=== PATIENT | female | born 1965 | race Caucasian/White ===

== ENCOUNTER 2017-01-17 10:30 | Emergency (ER) | payer SELFPAY ==
[2017-01-17] MEDS ORDERED: KETOROLAC TROMETHAMINE 60 MG/2 ML SDV IM ONE (10:44)
--- NOTE | 2017-01-17 10:50 | ER Document Report ---
ED Medical Screen (RME) - General Chief Complaint: Cough Stated Complaint: RIB PAIN Time Seen by Provider: 01/17/17 10:43 Mode of Arrival: Ambulatory Information source: Patient TRAVEL OUTSIDE OF THE [place] IN LAST 30 DAYS: No - HPI Patient complains to provider of: coughing up blood Onset: This morning - pt. has a h/o COPD who ocntinues to smoke -- she had an a eppisode of hemoptysis earlier this am and is having pain in R side of rib cage when she ocughs. - Related Data Allergies/Adverse Reactions: No Known Allergies Allergy (Verified 01/17/17 10:34) Past Medical History - Past Medical History Cardiac Medical History: Reports: Hx Pulmonary Embolism Pulmonary Medical History: Reports: Hx COPD Renal/ Medical History: Denies: Hx Peritoneal Dialysis Past Surgical History: Reports: Hx Cholecystectomy, Hx Oral Surgery - facial reconstruction Physical Exam - Vital signs Vitals: Temp Pulse Resp BP Pulse Ox 97.8 F 97 20 140/70 H 95 01/17/17 10:34 01/17/17 10:34 01/17/17 10:34 01/17/17 10:34 01/17/17 10:34 Course - Vital Signs Vital signs: Temp Pulse Resp BP Pulse Ox 97.8 F 97 20 140/70 H 95 01/17/17 10:34 01/17/17 10:34 01/17/17 10:34 01/17/17 10:34 01/17/17 10:34
[2017-01-17 11:20] LABS: ABSOLUTE BASOPHILS # (AUTO) 0.1 10^3/uL (0.0-0.2); ABSOLUTE EOSINOPHILS # (AUTO) 0.2 10^3/uL (0.0-0.6); ABSOLUTE LYMPHOCYTES (AUTO) 2.9 10^3/uL (0.5-4.7); ABSOLUTE MONOCYTES (AUTO) 0.6 10^3/uL (0.1-1.4); ABSOLUTE NEUT (AUTO) 3.2 10^3/uL (1.7-8.2); BASOPHILS % (AUTO) 0.7 % (0-2); EOSINOPHILS % (AUTO) 3.2 % (0-6); HEMATOCRIT 46.4 % (36.0-47.0); HEMOGLOBIN 16.3 g/dL (12.0-15.5); HGB HCT DIFFERENCE 2.5; LYMPHOCYTES % (AUTO) 41.9 % (13-45); MEAN CORPUSCULAR HEMOGLOBIN 34.1 pg (27.0-33.4); MEAN CORPUSCULAR HGB CONC 35.3 g/dL (32.0-36.0); MEAN CORPUSCULAR VOLUME 97 fl (80-97); MONOCYTES % (AUTO) 7.9 % (3-13); RED CELL DISTRIBUTION WIDTH 13.2 % (11.5-14.0); SEGMENTED NEUTROPHILS % (AUTO) 46.3 % (42-78)
--- NOTE | 2017-01-17 11:25 | RADIOLOGY REPORT (SQ) ---
EXAM DESCRIPTION: CHEST PA/LAT COMPLETED DATE/TIME: 01/17/2017 11:11 am REASON FOR STUDY: hemoptysis COMPARISON: 01/09/2016 EXAM PARAMETERS: NUMBER OF VIEWS: two views TECHNIQUE: Digital Frontal and Lateral radiographic views of the chest acquired. RADIATION DOSE: NA LIMITATIONS: none FINDINGS: LUNGS AND PLEURA: No opacities, masses or pneumothorax. No pleural effusion. MEDIASTINUM AND HILAR STRUCTURES: No masses or contour abnormalities. HEART AND VASCULAR STRUCTURES: Heart normal size. No evidence for failure. BONES: No acute findings. HARDWARE: None in the chest. OTHER: No other significant finding. IMPRESSION: NO SIGNIFICANT RADIOGRAPHIC FINDING IN THE CHEST. TECHNICAL DOCUMENTATION: JOB ID: [id number] [employer]- All Rights Reserved
[2017-01-17 11:40] LABS: ALANINE AMINOTRANSFERASE 33 U/L (9-52); ALKALINE PHOSPHATASE 92 U/L (38-126); ANION GAP 13 (5-19); ASPARTATE AMINO TRANSFERASE 22 U/L (14-36); BILIRUBIN,DIRECT 0.4 mg/dL (0.0-0.4); BILIRUBIN,TOTAL 0.4 mg/dL (0.2-1.3); BLOOD UREA NITROGEN 8 mg/dL (7-20); CALCIUM 9.4 mg/dL (8.4-10.2); CARBON DIOXIDE 23 mmol/L (22-30); CHLORIDE 108 mmol/L (98-107); CREATININE RESULT 0.81 mg/dL (0.52-1.25); GLUCOSE 123 mg/dL (75-110); POTASSIUM 3.8 mmol/L (3.6-5.0); SODIUM 144.3 mmol/L (137-145); TOTAL PROTEIN 7.2 g/dL (6.3-8.2)
--- NOTE | 2017-01-17 13:01 | EKG REPORT ---
SEVERITY:- ABNORMAL ECG - SINUS RHYTHM NONSPECIFIC T ABNORMALITIES, ANTERIOR LEADS : Confirmed by: Florentin Thornton MD 17-Jan-2017 13:00:26
[2017-01-17] MEDS ORDERED: NORMAL SALINE 1000 ML 1,000 ML IV ONE (13:28)
--- NOTE | 2017-01-17 13:49 | RADIOLOGY REPORT (SQ) ---
EXAM DESCRIPTION: CTA CHEST COMPLETED DATE/TIME: 01/17/2017 1:30 pm REASON FOR STUDY: right cp sob hemoptysis COMPARISON: None. TECHNIQUE: CT scan of the chest performed using helical scanning technique with dynamic intravenous contrast injection. Images reviewed with lung, soft tissue and bone windows. Reconstructed coronal and sagittal MPR images reviewed. Additional 3 dimensional post-processing performed to develop Maximal Intensity Projection images (WA P). All images stored on PACS. All CT scanners at this facility use dose modulation, iterative reconstruction, and/or weight based d osing when appropriate to reduce radiation dose to as low as reasonably achievable (ALARA). [facility]: Dose Right [facility]: CareDose [facility]: Dose Right [facility]: Teradose 4D [facility]: [employer] CONTRAST TYPE AND DOSE: contrast/concentration: Isovue 370.00 mg/ml; Total Contrast Delivered: 82.0 ml; Total Saline Delivered: 90.0 ml Contrast bolus optimized for the pulmonary arteries. Not diagnostic for the aorta. RENAL FUNCTION: Creatinine 0.8 BUN 8 RADIATION DOSE: Up-to-date CT equipment and radiation dose reduction techniques were employed. CTDIv ol: 16.5 - 31.2 mGy. DLP: 1116 mGy-cm. . LIMITATIONS: None. FINDINGS: LUNGS AND PLEURA: There is a 5 mm subpleural nodule in the left lower lobe on image 67 ser ies 4. No infiltrate or effusion. AORTA AND GREAT VESSELS: No aneurysm. Contrast bolus not optimized for the aorta. HEART: No pericardial effusion. No significant coronary artery calcifications. PULMONARY ARTERIES: No emboli visualized in the main pulmonary arteries or the segmental branches. HILAR AND MEDIASTINAL STRUCTURES: No identified masses or abnormal nodes. HARDWARE: None in the chest. UPPER ABDOMEN: No significant findings. Limited exam. THYROID AND OTHER SOFT TISSUES: No masses. No adenopathy. BONES: No acute or significant finding. 3D MIPS: Confirm above findings. OTHER: No other significant finding. IMPRESSION: 1. There is no evidence of pulmonary embolus. 2. There is a nonspecific 5 mm subpleural nodule on the left. COMMENT: [facility] CRITERIA FOR FOLLOW-UP OF PULMONARY NODULES Incidentally detected new nodules in persons 35 or older. HIGH RISK: History of smoking or other known risk factors. <6mm single solid nodule: LOW RISK: no routine followup. HIGH RISK: optional CT 12 mo. Quality ID # [id number]: Final reports with documentation of one or more dose reduction techniques (e.g., Au tomated exposure control, adjustment of the mA and/or kV according to patient size, use of iterative reconstruction technique) TECHNICAL DOCUMENTATION: JOB ID: [id number] [employer]- All Rights Reserved
[2017-01-17] MEDS ORDERED: AZITHROMYCIN 250 MG TABLET PO ONE (14:28)
[2017-01-17] MEDS ORDERED: ALBUTEROL SULFATE HFA (90 MCG/PUFF) 8 GM MDI (1 MDI/ER DISP) IH ONE (14:31)
--- NOTE | 2017-01-17 14:31 | ER Document Report ---
ED General - General Chief Complaint: Cough Stated Complaint: RIB PAIN Time Seen by Provider: 01/17/17 10:43 Mode of Arrival: Ambulatory TRAVEL OUTSIDE OF THE [place] 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 Patient states history of PE in the past. States pain ongoing for the last 3 days denies any trauma patient states smokes. Denies any fevers chills nausea vomiting. Patient resting comfortably upon my evaluation. No relief with pain medications. - Related Data Allergies/Adverse Reactions: No Known Allergies Allergy (Verified 01/17/17 10:34) Past Medical History - General Information source: Patient - Social History Smoking Status: Current Every Day Smoker Chew tobacco use (# tins/day): No Frequency of alcohol use: None Drug Abuse: None Family History: Reviewed & Not Pertinent Patient has suicidal ideation: No Patient has homicidal ideation: No - Past Medical History Cardiac Medical History: Reports: Hx Pulmonary Embolism Pulmonary Medical History: Reports: Hx COPD, Hx Pneumonia Renal/ Medical History: Denies: Hx Peritoneal Dialysis Past Surgical History: Reports: Hx Cholecystectomy, Hx Oral Surgery - facial reconstruction Review of Systems - Review of Systems Constitutional: No symptoms reported EENT: No symptoms reported Cardiovascular: Chest pain - Right rib pain Respiratory: No symptoms reported Gastrointestinal: No symptoms reported Genitourinary: No symptoms reported Female Genitourinary: No symptoms reported Musculoskeletal: No symptoms reported Skin: No symptoms reported Hematologic/Lymphatic: No symptoms reported Neurological/Psychological: No symptoms reported -: Yes All other systems reviewed and negative Physical Exam - Vital signs Vitals: Temp Pulse Resp BP Pulse Ox 97.8 F 97 20 140/70 H 95 01/17/17 10:34 01/17/17 10:34 01/17/17 10:34 01/17/17 10:34 01/17/17 10:34 Interpretation: Normal - General General appearance: Appears well, Alert - HEENT Head: Normocephalic, Atraumatic Eyes: Normal Pupils: PERRL - Respiratory Respiratory status: No respiratory distress Chest status: Tender - Tenderness to palpation of the right ribs Breath sounds: Normal Chest palpation: Normal - Cardiovascular Rhythm: Regular Heart sounds: Normal auscultation Murmur: No - Abdominal Inspection: Normal Distension: No distension Bowel sounds: Normal Tenderness: Nontender Organomegaly: No organomegaly - Back Back: Normal, Nontender - Extremities General upper extremity: Normal inspection, Nontender, Normal color, Normal ROM , Normal temperature General lower extremity: Normal inspection, Nontender, Normal color, Normal ROM , Normal temperature, Normal weight bearing. No: Martha's sign - Neurological Neuro grossly intact: Yes Cognition: Normal Orientation: AAOx4 [place] Coma Scale Eye Opening: Spontaneous [place] Coma Scale Verbal: Oriented Jo Coma Scale Motor: Obeys Commands Jo Coma Scale Total: 15 Speech: Normal Motor strength normal: LUE, RUE, LLE, RLE Sensory: Normal - Psychological Associated symptoms: Normal affect, Normal mood - Skin Skin Temperature: Warm Skin Moisture: Dry Skin Color: Normal Course - Re-evaluation Re-evalutation: 01/17/17 15:07 CTA is negative that shows single pulmonary nodule patient was encouraged follow -up information was given to her social work job titles to aid in follow-up for the patient. Unclear etiology of hemoptysis possibly underlying bronchitis concerning still for malignancy. Bronchitis atypical infection with Zithromax and bronchodilators. Otherwise laboratories not show any signs of critical pathology. Patient was highly encouraged to stop smoking and follow-up - Vital Signs Vital signs: Temp Pulse Resp BP Pulse Ox 97.8 F 97 20 140/70 H 95 01/17/17 10:34 01/17/17 10:34 01/17/17 10:34 01/17/17 10:34 01/17/17 10:34 - Laboratory Result Diagrams: 01/17/17 11:03 01/17/17 11:03 Laboratory results interpreted by me: 01/17/17 01/17/17 11:03 11:03 Hgb 16.3 H MCH 34.1 H Chloride 108 H Glucose 123 H Discharge - Discharge Clinical Impression: Bronchitis with hemoptysis Condition: Good Instructions: Bronchitis ([facility]), Hemoptysis ([facility]) Additional Instructions: At this time your CAT scan does not show any signs of significant infection or a blood clot. There is a 5 mm nodule seen left upper chest that will need to be followed by primary care in approximately 3 months. Please make sure we have good contact information for you as that our social work job titles will attempt to set up this follow-up appointment. I am concerned that you are coughing up blood. He may have underlying bronchitis that would not show up on the CT scan or a chest x-ray. We will treat this with a medication to open up her lungs to help out with shortness of breath also antibiotic called azithromycin. Please use the inhaler that we gave you here in ER 2 puffs every 4 hours. Return to ER symptoms worsen. Please stop smoking. Prescriptions: Azithromycin 250 mg PO DAILY #4 tablet Forms: Smoking Cessation Education, Return to Work
[2017-01-17 15:32] VITALS: BP 145/81
== END 2017-01-17 15:32 | disposition home or self-care (01) ==
LOC: ER 10:30
DX: J40 Bronchitis, not specified as acute or chronic (principal); R04.2 Hemoptysis; R07.81 Pleurodynia; F17.200 Nicotine dependence, unspecified, uncomplicated; J44.9 Chronic obstructive pulmonary disease, unspecified; Z86.711 Personal history of pulmonary embolism; Z90.49 Acquired absence of other specified parts of digestive tract
CPT/HCPCS: 93005; 99284; 96372; 96360; 85025; 36415; 80053; 71020; 71275; 93010; J1885; J7030; J3490

== ENCOUNTER 2017-05-12 12:35 | Emergency (ER) | payer SELFPAY ==
--- NOTE | 2017-05-12 14:13 | ER Document Report ---
ED Medical Screen (RME) - General Chief Complaint: Chest Pain Stated Complaint: PAIN IN BACK/ DIFFICULTY BREATHING Time Seen by Provider: 05/12/17 14:11 Notes: pt has cough/cp/back pain for several weeks TRAVEL OUTSIDE OF THE [place] IN LAST 30 DAYS: No - Related Data Allergies/Adverse Reactions: acetaminophen [From Vicodin] Adverse Reaction (Verified 05/12/17 14:02) hydrocodone [From Vicodin] Adverse Reaction (Verified 05/12/17 14:02) Past Medical History - Social History Chew tobacco use (# tins/day): No Frequency of alcohol use: None Drug Abuse: None - Past Medical History Cardiac Medical History: Reports: Hx Pulmonary Embolism Pulmonary Medical History: Reports: Hx COPD, Hx Pneumonia Renal/ Medical History: Denies: Hx Peritoneal Dialysis Past Surgical History: Reports: Hx Cholecystectomy, Hx Oral Surgery - facial reconstruction Physical Exam - Vital signs Vitals: Temp Pulse Resp BP Pulse Ox 98.1 F 115 H 18 126/71 H 93 05/12/17 12:53 05/12/17 12:53 05/12/17 12:53 05/12/17 12:53 05/12/17 12:53 Course - Vital Signs Vital signs: Temp Pulse Resp BP Pulse Ox 98.1 F 115 H 18 126/71 H 93 05/12/17 12:53 05/12/17 12:53 05/12/17 12:53 05/12/17 12:53 05/12/17 12:53
--- NOTE | 2017-05-12 14:37 | RADIOLOGY REPORT (SQ) ---
EXAM DESCRIPTION: CHEST PA/LAT COMPLETED DATE/TIME: 05/12/2017 2:30 pm REASON FOR STUDY: cough/sob COMPARISON: 01/17/2017. EXAM PARAMETERS: NUMBER OF VIEWS: two views TECHNIQUE: Digital Frontal and Lateral radiographic views of the chest acquired. RADIATION DOSE: NA LIMITATIONS: none FINDINGS: LUNGS AND PLEURA: No opacities, masses or pneumothorax. No pleural effusion. MEDIASTINUM AND HILAR STRUCTURES: No masses or contour abnormalities. HEART AND VASCULAR STRUCTURES: Heart normal size. No evidence for failure. BONES: No acute findings. HARDWARE: None in the chest. OTHER: No other significant finding. IMPRESSION: NO SIGNIFICANT RADIOGRAPHIC FINDING IN THE CHEST. TECHNICAL DOCUMENTATION: JOB ID: [id number] [employer]- All Rights Reserved Reading location - IP/workstation name: [email or web address]
[2017-05-12 15:02] LABS: ABSOLUTE EOSINOPHILS # (AUTO) 0.2 10^3/uL (0.0-0.6); ABSOLUTE LYMPHOCYTES (AUTO) 2.7 10^3/uL (0.5-4.7); ABSOLUTE MONOCYTES (AUTO) 0.5 10^3/uL (0.1-1.4); ABSOLUTE NEUT (AUTO) 3.3 10^3/uL (1.7-8.2); BASOPHILS % (AUTO) 0.6 % (0-2); EOSINOPHILS % (AUTO) 3.3 % (0-6); HEMATOCRIT 50.1 % (36.0-47.0); HEMOGLOBIN 17.2 g/dL (12.0-15.5); LYMPHOCYTES % (AUTO) 40.1 % (13-45); MEAN CORPUSCULAR HEMOGLOBIN 33.1 pg (27.0-33.4); MEAN CORPUSCULAR HGB CONC 34.3 g/dL (32.0-36.0); MEAN CORPUSCULAR VOLUME 97 fl (80-97); MONOCYTES % (AUTO) 7.9 % (3-13); PLATELET COUNT 208 10^3/uL (150-450); RED BLOOD COUNT 5.19 10^6/uL (3.72-5.28); RED CELL DISTRIBUTION WIDTH 13.6 % (11.5-14.0); SEGMENTED NEUTROPHILS % (AUTO) 48.1 % (42-78); TOTAL CELLS COUNTED % (AUTO) 100 %; WHITE BLOOD COUNT 6.8 10^3/uL (4.0-10.5)
[2017-05-12 15:03] LABS: APPEARANCE,URINE CLEAR; BILIRUBIN,URINE NEGATIVE (NEGATIVE); COLOR,URINE YELLOW; GLUCOSE, URINE NEGATIVE (NEGATIVE); KETONES,URINE NEGATIVE (NEGATIVE); LEUKOCYTE ESTERASE,URINE NEGATIVE (NEGATIVE); NITRITE,URINE NEGATIVE (NEGATIVE); PROTEIN,URINE NEGATIVE (NEGATIVE); URINE SPECIFIC GRAVITY 1.003; UROBILINOGEN,URINE NEGATIVE mg/dL (<2.0)
[2017-05-12] MEDS ORDERED: IPRATROPIUM/ALBUTEROL 0.5-2.5 MG/3 ML AMPUL NEB ONE ×3 (15:03→15:04)
[2017-05-12] MEDS ORDERED: PREDNISOLONE SOD PHOS 15 MG/5 ML ORAL SYRING PO ONE (15:04)
[2017-05-12] MEDS ORDERED: KETOROLAC TROMETHAMINE 60 MG/2 ML SDV IM ONE (15:04)
[2017-05-12] MEDS ORDERED: ACETAMINOPHEN SOLN 325 MG/10.15 ML UDCUP PO ONE (15:04)
--- NOTE | 2017-05-12 15:08 | ER Document Report ---
ED General - General Chief Complaint: Chest Pain Stated Complaint: PAIN IN BACK/ DIFFICULTY BREATHING Time Seen by Provider: 05/12/17 14:11 TRAVEL OUTSIDE OF THE [place] IN LAST 30 DAYS: No - HPI Patient complains to provider of: Difficulty breathing, wheeze Notes: 51-year-old female lengthy history of COPD presents with increasing work of breathing, cough, sputum production. Patient denies fever chills. She states she has been coughing so much he thinks he pulled a muscle in her back. Has pain in her back 6/10 sharp in nature without radiation exacerbated with coughing. Patient denies all other symptoms at this time - Related Data Allergies/Adverse Reactions: acetaminophen [From Vicodin] Adverse Reaction (Verified 05/12/17 14:02) hydrocodone [From Vicodin] Adverse Reaction (Verified 05/12/17 14:02) Past Medical History - Social History Smoking Status: Current Every Day Smoker Chew tobacco use (# tins/day): No Frequency of alcohol use: None Drug Abuse: None Family History: Reviewed & Not Pertinent Patient has suicidal ideation: No Patient has homicidal ideation: No - Past Medical History Cardiac Medical History: Reports: Hx Pulmonary Embolism Pulmonary Medical History: Reports: Hx COPD, Hx Pneumonia Renal/ Medical History: Denies: Hx Peritoneal Dialysis Past Surgical History: Reports: Hx Cholecystectomy, Hx Oral Surgery - facial reconstruction Review of Systems - Review of Systems Notes: REVIEW OF SYSTEMS: CONSTITUTIONAL: -fevers, -chills EENT: -eye pain, -difficulty swallowing, -nasal congestion CARDIOVASCULAR: -chest pain, -syncope. RESPIRATORY: Positive sputum production, cough, shortness of breath GASTROINTESTINAL: -abdominal pain, -nausea, -vomiting, -diarrhea GENITOURINARY: -dysuria, -hematuria MUSCULOSKELETAL: -back pain, -neck pain SKIN: -rash or skin lesions. HEMATOLOGIC: -easy bruising or bleeding. LYMPHATIC: -swollen, enlarged glands. NEUROLOGICAL: -altered mental status or loss of consciousness, -headache, - neurologic symptoms PSYCHIATRIC: -anxiety, -depression. ALL OTHER SYSTEMS REVIEWED AND NEGATIVE. Physical Exam - Vital signs Vitals: Temp Pulse Resp BP Pulse Ox 98.1 F 115 H 18 126/71 H 93 05/12/17 12:53 05/12/17 12:53 05/12/17 12:53 05/12/17 12:53 05/12/17 12:53 - Notes Notes: PHYSICAL EXAMINATION: GENERAL: Well-appearing, well-nourished and in no acute distress. HEAD: Atraumatic, normocephalic. EYES: Pupils equal round and reactive to light, extraocular movements intact, sclera anicteric, conjunctiva are normal. ENT: nares patent, oropharynx clear without exudates. Moist mucous membranes. NECK: Normal range of motion, supple without lymphadenopathy LUNGS: Biphasic wheezing HEART: Regular rate and rhythm without murmurs ABDOMEN: Soft, nontender, normoactive bowel sounds. No guarding, no rebound. No masses appreciated. EXTREMITIES: Normal range of motion, no pitting or edema. No cyanosis. NEUROLOGICAL: Cranial nerves grossly intact. Normal speech, normal gait. Normal sensory and motor exams. PSYCH: Normal mood, normal affect. SKIN: Warm, Dry, normal turgor, no rashes or lesions noted. Course - Re-evaluation Re-evalutation: 05/12/17 15:07 Unfortunate female with history of COPD presents with apparent COPD exacerbation. Profound wheezing noted. Chest x-ray unremarkable, EKG is no ischemic changes. 05/12/17 15:39 Pleasant female presents for COPD exacerbation given multiple breathing treatments, oral steroids, doxycycline. Patient be discharged home with prescription for more oral steroids and doxycycline. Given strict return precautions were - Vital Signs Vital signs: Temp Pulse Resp BP Pulse Ox 98.1 F 115 H 18 126/71 H 93 05/12/17 12:53 05/12/17 12:53 05/12/17 12:53 05/12/17 12:53 05/12/17 12:53 - Laboratory Result Diagrams: 05/12/17 14:47 05/12/17 14:47 Laboratory results interpreted by me: 05/12/17 05/12/17 14:47 14:47 Hgb 17.2 H Hct 50.1 H Glucose 127 H Direct Bilirubin 0.5 H - EKG Interpretation by Me Additional EKG results interpreted by me: 05/12/17 15:07 Normal sinus rhythm, no ST elevations or depressions, normal IA, normal QRS, no ST elevations, no pathologic T-wave inversions Unchanged from previous Discharge - Discharge Clinical Impression: COPD exacerbation Condition: Good Disposition: HOME, SELF-CARE Instructions: Chronic Obstructive Lung Disease ([facility]) Prescriptions: Doxycycline Hyclate 100 mg PO BID #14 capsule Prednisone [Deltasone 10 mg Tablet] 20 mg PO DAILY #3 tablet
[2017-05-12 15:16] LABS: BLOOD UREA NITROGEN 9 mg/dL (7-20); CALCIUM 10.1 mg/dL (8.4-10.2); GLUCOSE 127 mg/dL (75-110)
[2017-05-12 15:17] LABS: ALANINE AMINOTRANSFERASE 43 U/L (9-52); ALBUMIN 4.5 g/dL (3.5-5.0); ALKALINE PHOSPHATASE 74 U/L (38-126); ANION GAP 11 (5-19); ASPARTATE AMINO TRANSFERASE 27 U/L (14-36); BILIRUBIN,DIRECT 0.5 mg/dL (0.0-0.4); BILIRUBIN,TOTAL 0.6 mg/dL (0.2-1.3); CARBON DIOXIDE 23 mmol/L (22-30); CHLORIDE 107 mmol/L (98-107); POTASSIUM 4.1 mmol/L (3.6-5.0); SODIUM 140.9 mmol/L (137-145); TOTAL PROTEIN 8.2 g/dL (6.3-8.2)
[2017-05-12] MEDS ORDERED: DOXYCYCLINE HYCLATE 100 MG TABLET PO ONE (15:32)
[2017-05-12 17:13] VITALS: BP 134/89
--- NOTE | 2017-05-12 21:57 | EKG REPORT ---
SEVERITY:- OTHERWISE NORMAL ECG - SINUS TACHYCARDIA NONSPECIFIC T CHANGES ANT LEADS : Confirmed by: Celina Vidal 12-May-2017 21:56:44
== END 2017-05-12 17:15 | disposition home or self-care (01) ==
LOC: ER 12:35
DX: J44.1 Chronic obstructive pulmonary disease with (acute) exacerbation (principal); R05 Cough; F17.200 Nicotine dependence, unspecified, uncomplicated; Z86.711 Personal history of pulmonary embolism; Z87.01 Personal history of pneumonia (recurrent)
CPT/HCPCS: 93005; 94640; 99285; 96372; 36415; 85025; 80053; 81001; 84484; 71046; 93010; J1885; J7510; J7620; J3490

== ENCOUNTER 2017-08-27 18:49 | Emergency (ER) | payer SELFPAY ==
[2017-08-27] MEDS ORDERED: KETOROLAC TROMETHAMINE INJ/PF 30 MG/1 ML SDV IV ONE (19:46)
--- NOTE | 2017-08-27 19:48 | ER Document Report ---
ED Neck/Back Problem <CARMINE BARAKAT - Last Filed: 08/27/17 23:58> - General Mode of Arrival: Ambulatory Information source: Patient TRAVEL OUTSIDE OF THE [place] IN LAST 30 DAYS: No <AJAY MANJARREZ - Last Filed: 08/28/17 00:01> - General Chief Complaint: Back Pain Stated Complaint: BACK PAIN Time Seen by Provider: 08/27/17 19:30 Notes: Patient is a 51 year old female with COPD and a history of pulmonary embolism presents to the emergency department complaining of chronic lower back pain, worsening 2 days ago with associated symptoms of bilateral lower extremity numbness, tingling, weakness and urinary incontinence onset 2 days ago. Patient mentions a history of lower back degenerative disks a few years ago. Patient states the pain is exacerbated with any kind of movement and minimally relieved when supine. Patient states she takes Albuterol as needed. She denies taking any other medications. (AJAY MANJARREZ) - Related Data Allergies/Adverse Reactions: acetaminophen [From Vicodin] Adverse Reaction (Verified 08/27/17 18:49) hydrocodone [From Vicodin] Adverse Reaction (Verified 08/27/17 18:49) Past Medical History - General Information source: Patient - Social History Smoking Status: Current Every Day Smoker Cigarette use (# per day): Yes - 1 pack a day Chew tobacco use (# tins/day): No Frequency of alcohol use: None Drug Abuse: None Occupation: home delivery driver Family History: Reviewed & Not Pertinent - Past Medical History Cardiac Medical History: Reports: Hx Pulmonary Embolism Pulmonary Medical History: Reports: Hx COPD, Hx Pneumonia Past Surgical History: Reports: Hx Cholecystectomy, Hx Oral Surgery - facial reconstruction <AJAY MANJARREZ - Last Filed: 08/28/17 00:01> Review of Systems - Review of Systems Constitutional: No symptoms reported EENT: No symptoms reported Cardiovascular: No symptoms reported Respiratory: No symptoms reported Gastrointestinal: No symptoms reported Genitourinary: See HPI Female Genitourinary: No symptoms reported Musculoskeletal: See HPI, Back pain Skin: No symptoms reported Hematologic/Lymphatic: No symptoms reported Neurological/Psychological: See HPI, Weakness, Numbness, Tingling -: Yes All other systems reviewed and negative <AJAY MANJARREZ - Last Filed: 08/28/17 00:01> Physical Exam - General General appearance: Appears well, Alert In distress: None - HEENT Head: Normocephalic, Atraumatic Eyes: Normal Conjunctiva: Normal Extraocular movements intact: Yes Pupils: PERRL Neck: Normal - Respiratory Respiratory status: No respiratory distress Chest status: Nontender Breath sounds: Normal Chest palpation: Normal - Cardiovascular Rhythm: Regular Heart sounds: Normal auscultation Murmur: No Friction rub: No Gallop: None auscultated - Back Back: Tender - Tender to palpation anywhere on the lumbar sacral region - Extremities General upper extremity: Normal ROM, Normal strength General lower extremity: Normal ROM, Other - weaker on the RLE with plantar and dorsal flexion. Decreased sensations on the lateral LLE. - Neurological Neuro grossly intact: Yes Cognition: Normal Orientation: AAOx4 Jo Coma Scale Eye Opening: Spontaneous [place] Coma Scale Verbal: Oriented Jo Coma Scale Motor: Obeys Commands [place] Coma Scale Total: 15 Speech: Normal - Psychological Associated symptoms: Normal affect, Normal mood - Skin Skin Temperature: Warm Skin Moisture: Dry Skin Color: Normal <AJAY MANJARREZ - Last Filed: 08/28/17 00:01> - Vital signs Vitals: Temp Pulse Resp BP Pulse Ox 99.1 F 116 H 20 141/80 H 93 08/27/17 19:01 08/27/17 19:01 08/27/17 19:01 08/27/17 19:01 08/27/17 19:01 Course - Laboratory Result Diagrams: 08/27/17 20:30 08/27/17 20:30 <CARMINE BARAKAT - Last Filed: 08/27/17 23:58> - Laboratory Result Diagrams: 08/27/17 20:30 08/27/17 20:30 <AJAY MANJARREZ - Last Filed: 08/28/17 00:01> - Vital Signs Vital signs: Temp Pulse Resp BP Pulse Ox 99.1 F 116 H 20 141/80 H 93 08/27/17 19:01 08/27/17 19:01 08/27/17 19:01 08/27/17 19:01 08/27/17 19:01 - Laboratory Laboratory results interpreted by me: 08/27/17 08/27/17 08/27/17 20:30 20:30 20:39 Hgb 17.3 H Hct 49.1 H MCH 34.2 H Chloride 108 H Urine Urobilinogen 2.0 H Discharge <CARMINE BARAKAT - Last Filed: 08/27/17 23:58> <AJAY MANJARREZ - Last Filed: 08/28/17 00:01> - Discharge Clinical Impression: Low back pain Qualifiers: Chronicity: acute Back pain laterality: bilateral Sciatica presence: with sciatica Sciatica laterality: bilateral sciatica Qualified Code(s): M54.42 - Lumbago with sciatica, left side Disposition: HOME, SELF-CARE Additional Instructions: Low Back Pain Three out of every four people will have an episode of disabling back pain during their lifetime. Most commonly the pain is due to straining of the muscles and ligaments in the low back. Usual treatment includes: (1) Rest on a firm surface. Avoid lying on your stomach. (2) Ice pack the painful area. After a few days, gentle heat may be used intermittently to relax the area, or ice packs can be continued. (3) Medication may be needed -- muscle relaxers and antiinflammatory medicines are commonly used. (4) As the back improves, exercises are prescribed to strengthen the back and abdominal muscles. Your doctor will advise you on the proper care for your back at each stage in your recovery. You may be better in a few days -- or healing may take several weeks. If new symptoms of a "herniated disc" (radiation of pain, numbness, or tingling down the back of the leg or weakness in the leg) occur, you should be re-examined. Further testing may be necessary. Sciatica Some of your symptoms suggest "sciatica." The pain of sciatica typically radiates down the leg. Numbness in the foot or calf may also occur. Sciatica is caused by irritation of the sciatic nerve or its branches. The irritation can be due to a herniated disk in the spine, swelling and inflammation in the muscles surrounding the sciatic nerve, or direct injury of the nerve itself. Most cases of sciatica will resolve with medical treatment. Bed rest is usually recommended initially. Surgery is only necessary when the condition will not improve with rest and antiinflammatory medication. Muscle relaxers are often given if muscle soreness is present. Re-examination is necessary if you develop increasing numbness, localized weakness in the foot or ankle, or if the pain does not respond to rest. Take the medications as prescribed to reduce inflammation related to the nerves exiting your spinal canal. Rest. Take Tylenol and ibuprofen for pain as needed. Follow-up with a local medical doctor to manage your low back pain. RETURN TO THE EMERGENCY ROOM IF ANY NEW OR WORSENING SYMPTOMS. Prescriptions: Prednisone [Deltasone 10 mg Tablet] 10 mg PO ASDIR PRN #21 tablet PRN Reason: Forms: Return to Work Scribe Attestation: 08/27/17 20:02 I personally performed the services described in the documentation, reviewed and edited the documentation which was dictated to the scribe in my presence, and it accurately records my words and actions. (CARMINE BARAKAT) Scribe Documentation - Scribe Written by Makenna:: Makenna Schultz, 08/27/2017 19:57 acting as scribe for :: Андрей <AJAY MANJARREZ - Last Filed: 08/28/17 00:01>
[2017-08-27 20:41] LABS: ABSOLUTE BASOPHILS # (AUTO) 0.1 10^3/uL (0.0-0.2); ABSOLUTE EOSINOPHILS # (AUTO) 0.2 10^3/uL (0.0-0.6); ABSOLUTE LYMPHOCYTES (AUTO) 2.9 10^3/uL (0.5-4.7); ABSOLUTE MONOCYTES (AUTO) 0.7 10^3/uL (0.1-1.4); ABSOLUTE NEUT (AUTO) 4.1 10^3/uL (1.7-8.2); EOSINOPHILS % (AUTO) 2.7 % (0-6); HEMATOCRIT 49.1 % (36.0-47.0); HEMOGLOBIN 17.3 g/dL (12.0-15.5); MEAN CORPUSCULAR HEMOGLOBIN 34.2 pg (27.0-33.4); MEAN CORPUSCULAR HGB CONC 35.1 g/dL (32.0-36.0); MEAN CORPUSCULAR VOLUME 97 fl (80-97); MONOCYTES % (AUTO) 9.3 % (3-13); PLATELET COUNT 213 10^3/uL (150-450); RED BLOOD COUNT 5.05 10^6/uL (3.72-5.28); RED CELL DISTRIBUTION WIDTH 13.9 % (11.5-14.0); TOTAL CELLS COUNTED % (AUTO) 100 %
[2017-08-27 20:51] LABS: APPEARANCE,URINE SLIGHTLY-CLOUDY; BILIRUBIN,URINE NEGATIVE (NEGATIVE); COLOR,URINE YELLOW; GLUCOSE, URINE NEGATIVE (NEGATIVE); KETONES,URINE NEGATIVE (NEGATIVE); LEUKOCYTE ESTERASE,URINE NEGATIVE (NEGATIVE); NITRITE,URINE NEGATIVE (NEGATIVE); PROTEIN,URINE NEGATIVE (NEGATIVE); URINE SPECIFIC GRAVITY 1.019
[2017-08-27 20:53] LABS: ALANINE AMINOTRANSFERASE 38 U/L (9-52); ALBUMIN 3.9 g/dL (3.5-5.0); ALKALINE PHOSPHATASE 82 U/L (38-126); ANION GAP 9 (5-19); ASPARTATE AMINO TRANSFERASE 32 U/L (14-36); BILIRUBIN,DIRECT 0.3 mg/dL (0.0-0.4); BILIRUBIN,TOTAL 0.3 mg/dL (0.2-1.3); BLOOD UREA NITROGEN 13 mg/dL (7-20); CALCIUM 9.7 mg/dL (8.4-10.2); CARBON DIOXIDE 28 mmol/L (22-30); CHLORIDE 108 mmol/L (98-107); GLUCOSE 104 mg/dL (75-110); POTASSIUM 4.2 mmol/L (3.6-5.0); TOTAL PROTEIN 7.2 g/dL (6.3-8.2)
[2017-08-27] MEDS ORDERED: FENTANYL CITRATE INJ/PF 100 MCG/2 ML AMPUL IV ONE (21:45)
--- NOTE | 2017-08-27 23:22 | RADIOLOGY REPORT (SQ) ---
EXAM DESCRIPTION: CLINICAL HISTORY: LBP,leg numbness,legs weak,loss of bladder control COMPARISON: None Available. TECHNIQUE: Multiplanar multisequence MR imaging of the lumbar spine was performed without contrast FINDINGS: There is moderate bilateral L4-5 neural foraminal narrowing. There is moderate left and moderate right L5-S1 neural foraminal narrowing. There is mild bilateral L3-4 neural foraminal narrowing. Mild degenerative changes of the bones are seen. At L4-5 there is a central disc protrusion causing mild central canal narrowing and mild to moderate bilateral lateral recess narrowing. There is no evidence of acute fracture. No other acute abnormality. IMPRESSION: Degenerative changes with stenoses as above.
[2017-08-27] MEDS ORDERED: METHYLPREDNISOLONE INJ 125 MG/2 ML SDV IV ONE (23:31)
[2017-08-28 00:20] VITALS: BP 135/74
== END 2017-08-28 00:20 | disposition home or self-care (01) ==
LOC: ER 18:49
DX: M54.42 Lumbago with sciatica, left side (principal); M54.41 Lumbago with sciatica, right side; R20.0 Anesthesia of skin; R20.2 Paresthesia of skin; R53.1 Weakness; R32 Unspecified urinary incontinence; J44.9 Chronic obstructive pulmonary disease, unspecified; F17.210 Nicotine dependence, cigarettes, uncomplicated
CPT/HCPCS: 99284; 96374; 96375; 36415; 85025; 80053; 81001; 72148; J3010; J2930; J1885

== ENCOUNTER 2018-01-04 16:19 | Emergency (ER) | payer SELFPAY ==
[2018-01-04] MEDS ORDERED: VALACYCLOVIR HCL 500 MG TABLET PO ONE (16:43)
[2018-01-04] MEDS ORDERED: ONDANSETRON 4 MG TAB.RAPDIS PO ONE (16:43)
--- NOTE | 2018-01-04 16:44 | ER Document Report ---
ED General - General Chief Complaint: Rash Stated Complaint: ABDOMINAL PAIN Time Seen by Provider: 01/04/18 16:36 Notes: Patient is a 52-year-old female that presents to the emergency department for chief complaint of epigastric and right upper quadrant abdominal pain. Patient reports she started having this pain 3 days ago, seem to be worse with food. Then she states she started a rash on her back that wraps around towards her abdomen, that was spotty, and had some raised areas. She describes the pain is sharp in nature, and at its worst a 7 out of 10, that seems to wane on its own. She also noted she had some blood in the stool, which she attributed to hemorrhoids which she has had in the past. Denies noting any melena, black or dark stools. She denies having any lightheadedness, dizziness, chest pain, shortness of breath or difficulty breathing. She does report a history of peptic ulcer disease, takes 20 mg of Prilosec [id number] sporadically. Past Medical History: Peptic ulcer disease, COPD Past Surgical History: Cholecystectomy, oral surgery Social History: Admits to smoking cigarettes daily, denies alcohol or illicit drug use Family History: Reviewed and noncontributory for presenting illness Allergies: Reviewed, see documented allergy list. REVIEW OF SYSTEMS: Unless otherwise stated in this report the patient's positive and negative responses for review of systems for constitutional, eyes, ENT, cardiovascular, respiratory, gastrointestinal, neurological, genitourinary, musculoskeletal, and integumentary systems and related systems to the presenting problem are either as stated in the HPI or were not pertinent or were negative for the symptoms and/or complaints related to the presenting medical problem. PHYSICAL EXAMINATION: Vital signs reviewed, nursing noted reviewed. GENERAL: Obese female, no acute distress HEAD: Atraumatic, normocephalic. EYES: Eyes appear normal, extraocular movements intact, sclera anicteric, conjunctiva are normal. ENT: nares patent, oropharynx clear without exudates. Moist mucous membranes. NECK: Normal range of motion, supple without lymphadenopathy LUNGS: Breath sounds clear to auscultation bilaterally and equal. No wheezes rales or rhonchi. HEART: Regular rate and rhythm without murmurs ABDOMEN: Soft, mild epigastric tenderness with palpation, normoactive bowel sounds. No rebound, guarding, or rigidity. No masses appreciated. EXTREMITIES: Nontender, good range of motion, no pitting or edema. NEUROLOGICAL: No focal neurological deficits. Moves all extremities spontaneously Motor and sensory grossly intact on exam. PSYCH: Normal mood, normal affect. SKIN: Warm, Dry, normal turgor, there is a vesicular rash, patchy, extending from the right mid back anteriorly, most consistent with varicella zoster rash. Tender to palpate and erythematous. TRAVEL OUTSIDE OF THE [place] IN LAST 30 DAYS: No - Related Data Allergies/Adverse Reactions: hydrocodone [From Vicodin] Adverse Reaction (Verified 08/27/17 18:49) Past Medical History - Social History Smoking Status: Current Every Day Smoker Family History: Reviewed & Not Pertinent Patient has suicidal ideation: No Patient has homicidal ideation: No - Past Medical History Cardiac Medical History: Reports: Hx Pulmonary Embolism Pulmonary Medical History: Reports: Hx COPD, Hx Pneumonia Renal/ Medical History: Denies: Hx Peritoneal Dialysis Past Surgical History: Reports: Hx Cholecystectomy, Hx Oral Surgery - facial reconstruction Physical Exam - Vital signs Vitals: Temp Pulse Resp BP Pulse Ox 98 F 105 H 18 144/69 H 96 01/04/18 16:29 01/04/18 16:29 01/04/18 16:29 01/04/18 16:29 01/04/18 16:29 Course - Re-evaluation Re-evalutation: Patient seen and examined vital signs reviewed. Laboratory data and imaging were ordered as appropriate for the patient's presenting symptoms and complaint, with consideration of any critical or life threatening conditions that may be associated with their obtained history and exam as noted above. Patient was treated with Zofran, valacyclovir, and Percocet for pain Results were reviewed when available and demonstrated essentially unremarkable blood work, hemoconcentration, patient is a smoker, and expected, renal function normal, LFTs and alk phos normal, urinalysis was not concerning for urinary tract infection patient was asymptomatic, no burning or frequency or hematuria The patient was re-evaluated and was stable Evaluation was most consistent with varicella-zoster infection, shingles, possible GERD versus peptic ulcer disease, without evidence of bleeding ulcer, patient was prescribed Protonix, valacyclovir, and Percocet to take for breakthrough pain, NSAIDs were avoided due to possible ulcerative disease. Patient was agreeable to plan of care and given follow-up referrals. Results were discussed with the patient at this point, after careful consideration I feel that that patient can be discharged from the emergency department, the patient was educated treatments and reasons to return to the emergency department based on their presumed diagnosis as noted above, they were advised to followup with a primary care physician in 2-3 days. Patient was agreeable to plan of care. *Note is created using voice recognition software and may contain spelling, syntax or grammatical errors. Laboratory 01/04/18 01/04/18 01/04/18 17:07 17:35 17:35 WBC 5.2 RBC 4.94 Hgb 16.9 H Hct 48.5 H MCV 98 H MCH 34.2 H MCHC 34.8 RDW 13.3 Plt Count 210 Total Counted 100 Seg Neutrophils % Not Reportable Seg Neuts % (Manual) 50 Lymphocytes % Not Reportable Lymphocytes % (Manual) 33 Monocytes % Not Reportable Monocytes % (Manual) 10 Eosinophils % Not Reportable Eosinophils % (Manual) 5 Basophils % Not Reportable Basophils % (Manual) 2 Absolute Neutrophils Not Reportable Abs Neuts (Manual) 2.6 Absolute Lymphocytes Not Reportable Abs Lymphs (Manual) 1.7 Absolute Monocytes Not Reportable Abs Monocytes (Manual) 0.5 Absolute Eosinophils Not Reportable Absolute Eos (Manual) 0.3 Absolute Basophils Not Reportable Abs Basophils (Manual) 0.1 Clumped Platelets PRESENT Platelet Comment ADEQUATE RBC Morph Comment NORMO-CYTIC/CHROMIC Sodium Cancelled Potassium Cancelled Chloride Cancelled Carbon Dioxide Cancelled Anion Gap Cancelled BUN Cancelled Creatinine Cancelled Est GFR ( Amer) Cancelled Est GFR (Non-Af Amer) Cancelled Glucose Cancelled Calcium Cancelled Total Bilirubin Cancelled Direct Bilirubin Cancelled Neonat Total Bilirubin Cancelled Neonat Direct Bilirubin Cancelled Neonat Indirect Bili Cancelled AST Cancelled ALT Cancelled Alkaline Phosphatase Cancelled Total Protein Cancelled Albumin Cancelled Lipase Cancelled Urine Color YELLOW Urine Appearance SLIGHTLY-CLOUDY Urine pH 5.0 Ur Specific Randolph 1.015 Urine Protein NEGATIVE Urine Glucose (UA) NEGATIVE Urine Ketones NEGATIVE Urine Blood SMALL H Urine Nitrite NEGATIVE Urine Bilirubin NEGATIVE Urine Urobilinogen 2.0 H Ur Leukocyte Esterase NEGATIVE Urine WBC (Auto) 0 Urine RBC (Auto) 3 Urine Bacteria (Auto) TRACE Squamous Epi Cells Auto 2 Urine Mucus (Auto) OCC Urine Ascorbic Acid NEGATIVE 01/04/18 18:13 WBC RBC Hgb Hct MCV MCH MCHC RDW Plt Count Total Counted Seg Neutrophils % Seg Neuts % (Manual) Lymphocytes % Lymphocytes % (Manual) Monocytes % Monocytes % (Manual) Eosinophils % Eosinophils % (Manual) Basophils % Basophils % (Manual) Absolute Neutrophils Abs Neuts (Manual) Absolute Lymphocytes Abs Lymphs (Manual) Absolute Monocytes Abs Monocytes (Manual) Absolute Eosinophils Absolute Eos (Manual) Absolute Basophils Abs Basophils (Manual) Clumped Platelets Platelet Comment RBC Morph Comment Sodium 142.8 Potassium 4.4 Chloride 106 Carbon Dioxide 23 Anion Gap 14 BUN 10 Creatinine 0.73 Est GFR ( Amer) > 60 Est GFR (Non-Af Amer) > 60 Glucose 111 H Calcium 9.4 Total Bilirubin 0.4 Direct Bilirubin 0.2 Neonat Total Bilirubin Not Reportable Neonat Direct Bilirubin Not Reportable Neonat Indirect Bili Not Reportable AST 37 H ALT 34 Alkaline Phosphatase 92 Total Protein 7.7 Albumin 4.0 Lipase 116.2 Urine Color Urine Appearance Urine pH Ur Specific Randolph Urine Protein Urine Glucose (UA) Urine Ketones Urine Blood Urine Nitrite Urine Bilirubin Urine Urobilinogen Ur Leukocyte Esterase Urine WBC (Auto) Urine RBC (Auto) Urine Bacteria (Auto) Squamous Epi Cells Auto Urine Mucus (Auto) Urine Ascorbic Acid - Vital Signs Vital signs: Temp Pulse Resp BP Pulse Ox 98 F 105 H 18 144/69 H 96 01/04/18 16:29 01/04/18 16:29 01/04/18 16:29 01/04/18 16:29 01/04/18 16:29 - Laboratory Result Diagrams: 01/04/18 17:35 01/04/18 18:13 Laboratory results interpreted by me: 01/04/18 01/04/18 01/04/18 17:07 17:35 18:13 Hgb 16.9 H Hct 48.5 H MCV 98 H MCH 34.2 H Glucose 111 H AST 37 H Urine Blood SMALL H Urine Urobilinogen 2.0 H Discharge - Discharge Clinical Impression: Epigastric pain Shingles Qualifiers: Herpes zoster complications: without complications Qualified Code(s): B02.9 - Zoster without complications Condition: Stable Disposition: HOME, SELF-CARE Instructions: Shingles ([facility]) Additional Instructions: Take the antiviral medication as directed for the next 7 days, please follow-up with a primary care physician, and you can take the pain medication as prescribed, for breakthrough pain, otherwise you can take Tylenol for pain. Please take the prescribed antiacid medication, as some of your symptoms may be related to peptic ulcer disease, or reflux. Prescriptions: Oxycodone HCl [Oxycontin Ir 5 Mg Tablet] 1 mg PO Q6H PRN #15 tablet PRN Reason: flank pain Pantoprazole Sodium [Protonix] 40 mg PO DAILY #30 tablet. Valacyclovir HCl [Valacyclovir] 1,000 mg PO TID #21 tablet Referrals: [facility] [Provider Group] - Follow up in 3-5 days (or your primary care. ) ANNIE THORNE MD [[facility] STAFF] - Follow up in 3-5 days (or your primary care. )
[2018-01-04] MEDS ORDERED: OXYCODONE-ACETAMINOPHEN 5-325 MG TABLET PO ONE (17:36)
[2018-01-04 17:39] LABS: APPEARANCE,URINE SLIGHTLY-CLOUDY; BILIRUBIN,URINE NEGATIVE (NEGATIVE); COLOR,URINE YELLOW; GLUCOSE, URINE NEGATIVE (NEGATIVE); KETONES,URINE NEGATIVE (NEGATIVE); LEUKOCYTE ESTERASE,URINE NEGATIVE (NEGATIVE); NITRITE,URINE NEGATIVE (NEGATIVE); PROTEIN,URINE NEGATIVE (NEGATIVE); URINE SPECIFIC GRAVITY 1.015
[2018-01-04 17:53] LABS: HEMATOCRIT 48.5 % (36.0-47.0); HEMOGLOBIN 16.9 g/dL (12.0-15.5); MEAN CORPUSCULAR HEMOGLOBIN 34.2 pg (27.0-33.4); MEAN CORPUSCULAR HGB CONC 34.8 g/dL (32.0-36.0); MEAN CORPUSCULAR VOLUME 98 fl (80-97); PLATELET COUNT 210 10^3/uL (150-450); RED BLOOD COUNT 4.94 10^6/uL (3.72-5.28); RED CELL DISTRIBUTION WIDTH 13.3 % (11.5-14.0); WHITE BLOOD COUNT 5.2 10^3/uL (4.0-10.5)
[2018-01-04 18:09] LABS: ABSOLUTE LYMPHOCYTES# (MANUAL) 1.7 10^3/uL (0.5-4.7); ABSOLUTE MONOCYTES # (MANUAL) 0.5 10^3/uL (0.1-1.4); ABSOLUTE NEUTROPHILS# (MANUAL) 2.6 10^3/uL (1.7-8.2); BASOPHILS % (MANUAL) 2 % (0-2); EOSINOPHILS % (MANUAL) 5 % (0-6); LYMPHOCYTES % (MANUAL) 33 % (13-45); MONOCYTES % (MANUAL) 10 % (3-13); SEGMENTED NEUTROPHILS % (MAN) 50 % (42-78); TOTAL CELLS COUNTED 100
[2018-01-04 18:10] LABS: PLATELET CLUMPS PRESENT; PLATELET COMMENT ADEQUATE; RBC MORPHOLOGY COMMENT NORMO-CYTIC/CHROMIC
[2018-01-04 18:32] LABS: ALANINE AMINOTRANSFERASE 34 U/L (9-52); ALKALINE PHOSPHATASE 92 U/L (38-126); ANION GAP 14 (5-19); ASPARTATE AMINO TRANSFERASE 37 U/L (14-36); BILIRUBIN,DIRECT 0.2 mg/dL (0.0-0.4); BILIRUBIN,TOTAL 0.4 mg/dL (0.2-1.3); BLOOD UREA NITROGEN 10 mg/dL (7-20); CALCIUM 9.4 mg/dL (8.4-10.2); CARBON DIOXIDE 23 mmol/L (22-30); CHLORIDE 106 mmol/L (98-107); GLUCOSE 111 mg/dL (75-110); LIPASE 116.2 U/L (23-300); POTASSIUM 4.4 mmol/L (3.6-5.0); SODIUM 142.8 mmol/L (137-145); TOTAL PROTEIN 7.7 g/dL (6.3-8.2)
[2018-01-04 19:02] VITALS: BP 138/58
== END 2018-01-04 19:02 | disposition home or self-care (01) ==
LOC: ER 16:19
DX: R10.13 Epigastric pain (principal); B02.9 Zoster without complications; R10.11 Right upper quadrant pain; E66.9 Obesity, unspecified; J44.9 Chronic obstructive pulmonary disease, unspecified; F17.210 Nicotine dependence, cigarettes, uncomplicated; Z90.49 Acquired absence of other specified parts of digestive tract; Z87.11 Personal history of peptic ulcer disease
CPT/HCPCS: 99283; 36415; 83690; 85025; 80053; 81001; S0119